=== PATIENT | female | born 1945 | race Caucasian/White ===

== ENCOUNTER 2021-12-09 08:59 | Emergency (ER) | payer MEDICARE, OTHER, SELFPAY ==
[2021-12-09 09:16] VITALS: BP 106/75; PULSE 73; RESP 18; TEMP 36.3; O2SAT 100
--- NOTE | 2021-12-09 09:29 | ED.EYEPROB ---
HPI - Eye Problem General Chief complaint: Eye Problems Stated complaint: Left Eye Pain Time Seen by Provider: 12/09/21 09:25 History of Present Illness HPI Narrative: Lucrecia Balbuena is a 76 yo female with high cholesterol [facility] with what appears to be a 2 x 3 cm lesion just below the left eyelid that she said started about 10 days ago she seen the employee health nurse 3 days ago and was given eyedrops have not improved at all. She says at times is tender if you keep messing with it but generally its not tender to the touch it appears red but not angry and does not appear fluctuant Patient is here from [place] so does not have a regular doctor or supervisor pleating; is here to her in assisted living and sell her house-she has been busy and waited until lesion continued to get larger before coming to employee health nurse or to us Related Data Home Medications Medication Instructions Recorded Confirmed [id number] 3.5 4 drp LEFT EYE DIRECTED 12/09/21 12/09/21 mg/mL-10,000 unit/mL-0.1% eye drops Review of Systems Review of Systems: CONSTITUTIONAL: Denies fever, chills, sweats. EYES: Denies visual changes, redness, discharge. Lesion below left lower lid that patient states is enlarging ENT: Denies rhinorrhea, congestion, sore throat, otalgia. CARDIOVASCULAR: Denies chest pain, palpitations, edema. RESPIRATORY: Denies dyspnea, wheezing, cough GASTROINTESTINAL: Denies abdominal pain, nausea, vomiting, diarrhea. GENITOURINARY: Denies dysuria, hematuria, abnormal discharge SKIN: Denies rash or itching. NEUROLOGIC: Denies numbness, or focal weakness. PSYCHIATRIC: Denies anxiety or depression. [facility] Past Medical History Medical History High cholesterol Social History Social History (Updated 12/09/21 @ 09:37 by Keisha Rasmussen CNP) Smoking status: Current every day smoker Alcohol intake: current Comments At time of signature, I agree with nursing past medical, surgical, social and family history. There is no relevant family history pertinent to the presenting complaint. Exam Narrative: GENERAL: This is a well-nourished, well-developed patient, in mild distress. HEAD: normocephalic, atraumatic. EYES: . Sclera clear/white. Vision is grossly intact.Lesion below L eyelid, red in color but not inflamed, denies tenderness EARS: External ears normal,. Hearing grossly intact. NOSE: External nose normal without nasal discharge, nares without redness, no rhinorrhea. THROAT: Mucous membranes moist, NECK: Neck supple, non-tender CARDIOVASCULAR: Regular rate and rhythm without murmurs, gallops, or rubs. RESPIRATORY: Clear to auscultation. Breath sounds equal bilaterally. No wheezes, rales, or rhonchi. GASTROINTESTINAL: Not done SKIN: warm, intact with no suspicious lesions or rash, good texture and turgor. NEURO: awake, alert, and oriented to person, place and time. There were no obvious focal neurologic abnormalities. Steady gait EXTREMITIES: Normal range of motion. BACK: Nontender without deformity Course Course Emergency Course: Patient here with lesion under left eyelid Called employee health nurse office (Dr Angulo) that she saw on Saturday and he agreed to see her for follow-up today Level of Care: Express Care Visit Vital Signs Vital signs: Vital Signs Temperature 97.3 F L 12/09/21 09:16 Pulse Rate 73 12/09/21 09:16 Respiratory Rate 18 12/09/21 09:16 Blood Pressure 106/75 12/09/21 09:16 Pulse Oximetry 100 12/09/21 09:16 Oxygen Delivery Room Air 12/09/21 09:16 Temperature 97.3 F L 12/09/21 09:16 Pulse Rate 73 12/09/21 09:16 Respiratory Rate 18 12/09/21 09:16 Blood Pressure 106/75 12/09/21 09:16 Pulse Oximetry 100 12/09/21 09:16 Oxygen Delivery Room Air 12/09/21 09:16 MDM - Eye Problem Differential Diagnosis Differential diagnosis: Likely conjunctivitis (Cyst versus periorbital cellulitis) and other Cr
== END 2021-12-09 09:41 | disposition home or self-care (01) ==
PROVIDERS: Emergency Provider Nurse Practitioner
DX: L98.9 Disorder of the skin and subcutaneous tissue, unspecified (principal); E78.00 Pure hypercholesterolemia, unspecified; F17.200 Nicotine dependence, unspecified, uncomplicated
CPT/HCPCS: 99202; G0463